=== PATIENT | male | born 1975 | race Caucasian/White ===

== ENCOUNTER 2017-10-07 11:53 | Emergency (ER) | payer MEDICAID ==
[~2017-10-07] VITALS: Ht 160 cm; Wt 100.0 kg
[~2017-10-07 11:53] MED LIST: ativan; dilantin
[2017-10-07 14:01] VITALS: BP 126/82
[2017-10-07 14:08] LABS: BASOPHILS % 0.5 % (0.0-2.0); HEMATOCRIT. 43.9 % (42.0-52.0); HEMOGLOBIN. 14.7 g/dL (14.0-18.0); LYMPHOCYTES % 27.5 % (20.0-50.0); MEAN CORPUSCULAR HEMOGLOBIN 29.7 pg (28.0-32.0); MEAN CORPUSCULAR VOLUME 88.4 fL (80.0-94.0); MEAN PLATELET VOLUME 6.5 fl (7.4-10.4); MONOCYTES % 8.2 % (2.0-8.0); NEUTROPHILS % 63.8 % (40.0-76.0); PLATELET 277 x1000/uL (130-400); RED BLOOD CELL COUNT 4.97 mill/uL (4.7-6.1); RED CELL DISTRIBUTION WIDTH 14.3 % (11.6-14.6)
[2017-10-07 14:14] LABS: CHLORIDE 105 mEq/L (98-107)
[2017-10-07 14:43] LABS: ETHANOL BLOOD 366 mg/dL
== END 2017-10-07 15:01 | disposition home or self-care (01) ==
LOC: ER 11:58
DX: F10.229 Alcohol dependence with intoxication, unspecified (principal); Y90.8 Blood alcohol level of 240 mg/100 ml or more; F17.210 Nicotine dependence, cigarettes, uncomplicated
CPT/HCPCS: 36415; 80053; 85025; 99284; G0482; Z7610

== ENCOUNTER 2017-10-07 21:58 | Emergency (ER) | payer MEDICAID ==
[~2017-10-07] VITALS: Ht 172.7 cm; Wt 96.0 kg
[2017-10-08 00:46] LABS: BASOPHILS % 0.5 % (0.0-2.0); EOSINOPHILS % 0.1 % (0.0-5.0); HEMATOCRIT. 41.5 % (42.0-52.0); LYMPHOCYTES % 24.1 % (20.0-50.0); MEAN CORPUSCULAR HEMOGLOBIN 29.6 pg (28.0-32.0); MEAN CORPUSCULAR VOLUME 87.5 fL (80.0-94.0); MEAN PLATELET VOLUME 6.2 fl (7.4-10.4); MONOCYTES % 9.7 % (2.0-8.0); NEUTROPHILS % 65.6 % (40.0-76.0); PLATELET 274 x1000/uL (130-400); RED BLOOD CELL COUNT 4.75 mill/uL (4.7-6.1); RED CELL DISTRIBUTION WIDTH 14.2 % (11.6-14.6)
[2017-10-08 00:52] LABS: CHLORIDE 107 mEq/L (98-107)
[2017-10-08 00:58] LABS: INR 1.1
[2017-10-08 01:04] LABS: ETHANOL BLOOD 326 mg/dL
[2017-10-08 01:26] LABS: CLARITY URINE CLEAR (CLEAR); COLOR URINE YELLOW (YELLOW); KETONES URINE NEGATIVE (NEGATIVE); LEUKOCYTE ESTERASE URINE NEGATIVE (NEGATIVE); NITRITE URINE NEGATIVE (NEGATIVE); OCCULT BLOOD URINE NEGATIVE (NEGATIVE); PH URINE 7.5 (4.5-8.0); PROTEIN URINE 1+ (NEGATIVE); SPECIFIC GRAVITY URINE 1.025 (1.005-1.030)
[2017-10-08 01:36] LABS: *AMPHETAMINES SCREEN URINE NEGATIVE (NEGATIVE); *BARBITURATES SCREEN URINE NEGATIVE (NEGATIVE); *BENZODIAZEPINES SCREEN URINE NEGATIVE (NEGATIVE); *COCAINE SCREEN URINE NEGATIVE (NEGATIVE)
[2017-10-08 01:37] LABS: CANNABINOID URINE SCREEN NEGATIVE (NEGATIVE); METHADONE URINE SCREEN NEGATIVE (NEGATIVE); OPIATES URINE SCREEN NEGATIVE (NEGATIVE); PHENCYCLIDINE URINE SCREEN NEGATIVE (NEGATIVE)
[2017-10-08] MEDS ORDERED: SERTRALINE HCL 100MG TABLET PO STA (04:57)
[2017-10-08] MEDS ORDERED: QUETIAPINE FUMARATE 50MG TABLET PO STA (04:57)
[2017-10-08 05:54] VITALS: BP 112/66
== END 2017-10-08 06:44 | disposition home or self-care (01) ==
LOC: ER 22:17
DX: F10.129 Alcohol abuse with intoxication, unspecified (principal); Y90.8 Blood alcohol level of 240 mg/100 ml or more
CPT/HCPCS: 36415; 80053; 80305; 81003; 85025; 85610; 99284; G0482; Z7610